=== PATIENT | male | born 1995 | race Caucasian/White ===

== ENCOUNTER 2022-11-04 19:27 | Emergency (ER) | payer OTHER, SELFPAY ==
[2022-11-04 19:37] VITALS: BP 144/86; PULSE 109; RESP 18; TEMP 37.9; O2SAT 96; BMI 30.3
[2022-11-04 19:40] VITALS: TEMP 37.9
[2022-11-04] MEDS: IBUPROFEN 400 MG TABLET 800 MG PO (19:40)
--- NOTE | 2022-11-04 19:44 | DI.RAD.S_ITS ---
PROCEDURE: XR CHEST 1V INDICATIONS: cough TECHNIQUE: One view of the chest was acquired. COMPARISON: None. FINDINGS: Surgical changes and devices: None. Lungs and pleura: On this semiupright portable chest examination, no large pneumothorax or large pleural effusions are seen. No focal infiltrates are seen. Mediastinum: Mediastinal contours appear normal. Heart size is normal. Bones and chest wall: No suspicious bony lesions. Overlying soft tissues appear unremarkable. IMPRESSION: No focal infiltrates are seen. Dictated by: Aakash Hussein M.D. on 11/04/2022 at 19:22 Approved by: Aakash Hussein M.D. on 11/04/2022 at 19:22
[2022-11-04 20:40] VITALS: BP 116/76; PULSE 98; RESP 21; TEMP 36.6; O2SAT 98
[2022-11-04 20:48] LABS: Adenovirus Not Detected (Not Detect); B. parapertussis Not Detected (Not Detecte); Bordetella pertussis Not Detected (Not Detecte); Chlamydophila pneumoniae Not Detected (Not Detect); Coronavirus 229E Not Detected (Not Detect); Coronavirus HKU1 Not Detected (Not Detect); Coronavirus NL 63 Not Detected (Not Detect); Coronavirus OC43 Not Detected (Not Detect); Human Metapneumovirus Not Detected (Not Detect); Human Rhinovirus/Enterovirus Detected (Not Detect); Influenza A Not Detected (Not Detect); Influenza B Not Detected (Not Detect); Mycoplasma pneumoniae Not Detected (Not Detect); Parainfluenza Virus 1 Not Detected (Not Detect); Parainfluenza Virus 2 Not Detected (Not Detect); Parainfluenza Virus 3 Not Detected (Not Detect); Parainfluenza Virus 4 Not Detected (Not Detect); Respiratory Syncytial Virus Not Detected (Not Detect); SARS- CoV-2 Not Detected (Not Detecte)
--- NOTE | 2022-11-04 20:53 | ED_ITS ---
HPI - URI/Sore Throat General Chief Complaint: Upper Respiratory Symptoms Stated Complaint: SOB, cough, mucus, sharp lower back pain Time Seen by Provider: 11/04/22 20:51 Source: patient Mode of arrival: Ambulatory History of Present Illness HPI Narrative: Patient is a 27-year-old healthy man who presents with 3 days of upper respiratory like symptoms. He reports cough some nasal congestion says he sometimes coughs green things. He has low-grade fever and mildly tachycardic in the ED. he denies significant shortness of breath no abdominal pain nausea or vomiting. No headache. Related Data Allergies Allergy/AdvReac Type Severity Reaction Status Date / Time No Known Drug Allergies Allergy Verified 11/04/22 19:37 Review of Systems Review of Systems ROS Unobtainable: All systems reviewed & are unremarkable except as noted in HPI and below Patient History tobacco type: vaping Substance Use Type: does not use Exam Initial Vital Signs Initial Vital Signs: Vital Signs Temperature 100.2 F H 11/04/22 19:37 Pulse Rate 109 H 11/04/22 19:37 Respiratory Rate 18 11/04/22 19:37 Blood Pressure 144/86 H 11/04/22 19:37 Pulse Oximetry 96 11/04/22 19:37 Oxygen Delivery Method Room Air 11/04/22 19:37 GENERAL: Alert well-appearing 27-year-old male HEENT: Head atraumatic,EOMI, pupils reactive, face symmetric, moist mucous membranes CARDIOVASCULAR: Regular rate and rhythm without murmurs, rubs or gallops. RESPIRATORY: Breath sounds equal bilaterally, no wheezes rales or rhonchi. ABDOMEN: Soft, nontender. Normoactive bowel sounds all 4 quadrants. No guarding or rebound. EXTREMITIES: Normal range of motion, no clubbing or edema. Neurovascularly intact NEUROLOGICAL: Alert and oriented x4.Normal gait and speech. SKIN: Warm, dry, no laceration, no petechiae, no rashes or lesions. Course Orders Ordered: ED Orders 11/04/22 18:35 Respiratory Panel (Film Array) Stat 11/04/22 19:44 XR chest 1V Stat Discontinued Medications Albuterol (Albuterol Hfa Prepack) 1 box MISC SEEINSTR ONE Stop: 11/04/22 21:05 Last Admin: 11/04/22 21:09 Dose: 1 box Documented By: BJORN Ibuprofen (Ibuprofen 400 Mg Tablet) 800 mg PO NOW ONE Stop: 11/04/22 19:35 Last Admin: 11/04/22 19:40 Dose: 800 mg Documented By: JORDAN Vital Signs Vital signs: Vital Signs - 8 hr 11/04/22 19:37 11/04/22 19:40 11/04/22 20:40 Temperature 100.2 F H 100.2 F H 98 F Pulse Rate 109 H 98 H Respiratory Rate 18 21 Blood Pressure 144/86 H 116/76 Pulse Oximetry 96 98 Oxygen Delivery Method Room Air MDM - URI/Sore Throat Lab Data Labs: Lab Results 11/04/22 Range/Units 18:35 Chlamy pneumoniae PCR Not detected (Not Detect) Adenovirus (PCR) Not detected (Not Detect) B. pertussis DNA (PCR) Not detected (Not Detecte) B.parapertussis DNA PCR Not detected (Not Detecte) Coronavirus OC43 (PCR) Not detected (Not Detect) Coronavirus HKU1 (PCR) Not detected (Not Detect) Coronavirus 229E (PCR) Not detected (Not Detect) SARS-CoV-2 (PCR) Not detected (Not Detecte) Coronavirus NL63 (PCR) Not detected (Not Detect) Human Metapneumovir PCR Not detected (Not Detect) Influenza Type A (PCR) Not detected (Not Detect) Influenza Type B (PCR) Not detected (Not Detect) M. pneumoniae (PCR) Not detected (Not Detect) Parainfluenza 1 (PCR) Not detected (Not Detect) Parainfluenza 2 (PCR) Not detected (Not Detect) Parainfluenza 3 (PCR) Not detected (Not Detect) Parainfluenza 4 (PCR) Not detected (Not Detect) RSV (PCR) Not detected (Not Detect) Entero/Rhino (PCR) Detected H (Not Detect) Imaging Data Chest x-ray: Radiologist's Impression: PROCEDURE:? XR CHEST 1V ? INDICATIONS:? cough ? TECHNIQUE:? One view of the chest was acquired.? ? COMPARISON:? None. ? FINDINGS:? ? Surgical changes and devices:? None.? ? Lungs and pleura:? On this semiupright portable chest examination, no large pneumothorax or large pleural effusions are seen.? No focal infiltrates are seen.? ? Mediastinum:? Mediastinal contours appear normal.? Heart size is normal.? ? Bones and chest wall:? No suspicious bony lesions.? Overlying soft tissues appear unremarkable.? IMPRESSION:? No focal infiltrates are seen. ? ? Dictated by: Aakash Hussein M.D. on 11/04/2022 at 19:22 ? ? [facility] Narrative Medical decision making narrative: Patient is a 27-year-old male who presents with a for respiratory symptoms ongoing for 3 days. Febrile mildly tachycardic. Normal blood pressure. Positive for eye entero/rhinovirus x-ray is negative for pneumonia. No concern for severe sepsis. Likely viral. He is awake alert oriented without signs of respiratory distress. No need for antibiotics or further workup. Discharge Plan Departure Patient Disposition: Home Clinical Impression: Upper respiratory infection Instructions: DI for Viral Upper Respiratory Infection -- Adult Activity Restrictions/Additional Instructions: *You have been diagnosed with \upper respiratory infection *What to do: At this time your x-ray is negative no pneumonia. Hydrate treat fever as needed *Continue to take medications as directed Motrin 600 mg every 6 hours if needed for fever Tylenol 1000 mg every 6 hours if needed fever *Follow up with your primary care provider in 2-3 days or call [phone] *Return to ER if you should have increasing shortness of breath fever not controlled pain [or] any new, worsening or concerning symptoms Stand Alone Forms: Patient Portal/API
[2022-11-04] MEDS: ALBUTEROL HFA PREPACK 1 BOX MISC (21:09)
== END 2022-11-04 21:10 | disposition home or self-care (01) ==
PROVIDERS: Emergency Provider Emergency Medicine
DX: J06.9 Acute upper respiratory infection, unspecified (principal); R50.9 Fever, unspecified; R00.0 Tachycardia, unspecified; B34.8 Other viral infections of unspecified site; Z20.822 Contact with and (suspected) exposure to COVID-19
CPT/HCPCS: 71045; 87633; 99283